=== PATIENT | female | born 1960 | race Caucasian/White ===

== ENCOUNTER → 2016-05-10 | Outpatient (CLI) | payer BC, MEDICARE ==
--- NOTE | 2016-05-11 08:22 | MM ---
Reason for exam: screening (asymptomatic). Last mammogram was performed 1 year and 3 months ago. History: Patient is postmenopausal. Physical Findings: A clinical breast exam by your physician is recommended on an annual basis and results should be correlated with mammographic findings. MG Screening Mammo w CAD Bilateral CC and MLO view(s) were taken. Prior study comparison: February 19, 2015, bilateral MG screening mammo w CAD. August 29, 2013, bilateral MG screening mammo w CAD. There are scattered fibroglandular densities. Asymmetric breast tissue in the right breast. No significant changes when compared with prior studies. ASSESSMENT: Benign, BI-RAD 2 RECOMMENDATION: Routine screening mammogram of both breasts in 1 year.
== END | disposition home or self-care (01) ==
LOC: RADMAMWWP 07:59
PROVIDERS: ATTEND Obstetrics & Gynecology
DX: Z12.31 Encounter for screening mammogram for malignant neoplasm of breast (principal)

== ENCOUNTER 2016-11-19 09:28 | Emergency (ER) | payer BC, MEDICARE ==
--- NOTE | 2016-11-19 10:55 | ED ---
General Adult HPI - General Chief complaint: Skin/Abscess/Foreign Body Stated complaint: abcess Time Seen by Provider: 11/19/16 09:41 Source: patient, RN notes reviewed Mode of arrival: ambulatory Limitations: no limitations - History of Present Illness Initial comments: Patient 56-year-old female who presents emergency room today with chief complaint of an abscess located on the right side of her buttocks. She does admit that it started approximate 4-5 days ago. She was seen by the family doctor who did do an incision and drainage and placed on antibiotics 2 days ago. She states has not gotten any better and has been getting worse. She states she's currently on Bactrim. She admits to pain locally to the areas states it is common larger and more tender and swollen. Denies any other complaints or symptoms at this time. Patient denies any recent fever, chills, shortness of breath, chest pain, back pain, abdominal pain, nausea or vomiting, numbness or tingling, dysuria or hematuria, constipation or diarrhea, headaches or visual changes, or any other complaints. - Related Data Home Medications Medication Instructions Recorded Confirmed Varenicline Tartrate [Chantix] 1 each PO DAILY 11/19/16 11/19/16 amLODIPine [Norvasc] 5 mg PO DAILY 11/19/16 11/19/16 Previous Rx's Medication Instructions Recorded Sulfamethox-Tmp 800-160Mg [Bactrim 1 tab PO Q12HR #28 tab 11/19/16 DS 800-160 mg] Allergies Allergy/AdvReac Type Severity Reaction Status Date / Time No Known Allergies Allergy Verified 11/19/16 09:33 Review of Systems ROS Statement: Those systems with pertinent positive or pertinent negative responses have been documented in the HPI. ROS Other: All systems not noted in ROS Statement are negative. Past Medical History Past Medical History: Hypertension History of Any Multi-Drug Resistant Organisms: None Reported Past Surgical History: Bariatric Surgery, Section, Joint Replacement, Orthopedic Surgery Additional Past Surgical History / Comment(s): mikey knee shoulder Past Psychological History: No Psychological Hx Reported Smoking Status: Current every day smoker Past Alcohol Use History: Occasional Past Drug Use History: None Reported General Exam - General Exam Comments Initial Comments: General: The patient is awake and alert, in no distress, and does not appear acutely ill. Eye: Pupils are equal, round and reactive to light, extra-ocular movements are intact. No nystagmus. There is normal conjunctiva bilaterally. No signs of icterus. Ears, nose, mouth and throat: There are moist mucous membranes and no oral lesions. Neck: The neck is supple, there is no tenderness or JVD. Cardiovascular: There is a regular rate and rhythm. No murmur, rub or gallop is appreciated. Respiratory: Lungs are clear to auscultation, respirations are non-labored, breath sounds are equal. No wheezes, stridor, rales, or rhonchi. Musculoskeletal: Normal ROM, no tenderness. Strength 5/5. Sensation intact. Pulses equal bilaterally 2+. Neurological: A&O x 3. CN II-XII intact, There are no obvious motor or sensory deficits. Coordination appears grossly intact. Speech is normal. Skin: Skin is warm and dry and no rashes or lesions are noted. Psychiatric: Cooperative, appropriate mood & affect, normal judgment. : [employer]PERVIS[employer]EN Bhatia present for exam. Patient does have a abscess formed on the right buttocks measuring approximately 5-6 cm across. Local redness or erythema. Ulcerated area centrally with no drainage. Limitations: no limitations Course Vital Signs 11/19/16 09:30 Temperature 98.7 F Pulse Rate 92 Respiratory 18 Rate Blood Pressure 130/75 O2 Sat by Pulse 99 Oximetry Procedures - Procedures Initial comment: Procedure: Incision and drainage The skin overlying the abscess was prepped with Betadine, and anesthetized with 1% lidocaine without epinephrine. A #11 scalpel was then used to incise the abscess. Some purulent material was then extracted from the lesion. Wound culture obtained. Gauze dressing placed on top, The patient tolerated the procedure well. Medical Decision Making - Medical Decision Making Case was seen by attending physician Dr. Craft. At this time patient's abscess was restrained here in the emergency room a moderate amount of material was removed. Patient states she would like to try to go home. She'll be continued on antibiotics she was only taking one tablet of Bactrim daily. Advised patient to increased Bactrim today to 2 tabs twice a day followed by 1 tab twice a day. Advised to follow-up Monday morning. Advised return if symptoms increase or worsen. Disposition Clinical Impression: Abscess Disposition: HOME SELF-CARE Condition: Good Instructions: Abscess (ED) Additional Instructions: Please use medication as discussed. Please follow-up with family doctor in the next 2 days of symptoms have not improved. Please return to emergency room if the symptoms increase or worsen or for any other concerns. Prescriptions: Sulfamethox-Tmp 800-160Mg [Bactrim DS 800-160 mg] 1 tab PO Q12HR #28 tab Referrals: Annamarie Isaac MD [Primary Care Provider] - 1-2 days Time of Disposition: 10:59
[2016-11-19 11:06] VITALS: BP 165/88; PULSE 87; RESP 16; TEMP 97.8
== END 2016-11-19 11:10 | disposition home or self-care (01) ==
LOC: EC 09:28
DX: L02.31 Cutaneous abscess of buttock (principal); I10 Essential (primary) hypertension; F17.200 Nicotine dependence, unspecified, uncomplicated; Z79.899 Other long term (current) drug therapy
CPT/HCPCS: 10060; 87070; 87077; 87186; 87205; 99283

== ENCOUNTER → 2017-12-13 | Outpatient (CLI) | payer BC, MEDICARE ==
--- NOTE | 2017-12-15 11:49 | MM ---
Reason for exam: screening (asymptomatic). Last mammogram was performed 1 year and 7 months ago. History: Patient is postmenopausal. Physical Findings: A clinical breast exam by your physician is recommended on an annual basis and results should be correlated with mammographic findings. MG 3D Screening Mammo W/Cad Bilateral CC and MLO view(s) were taken. Prior study comparison: May 10, 2016, bilateral MG screening mammo w CAD. February 19, 2015, bilateral MG screening mammo w CAD. Finding: There is a typically benign, stable 7 mm equal density (isodense), partially obscured round mass in the lower inner quadrant, middle position of the right breast. No significant new finding since May 10, 2016. ASSESSMENT: Benign, BI-RAD 2 RECOMMENDATION: Routine screening mammogram of both breasts in 1 year.
== END | disposition home or self-care (01) ==
LOC: RADMAMWWP 10:41
PROVIDERS: ATTEND Obstetrics & Gynecology
DX: Z12.31 Encounter for screening mammogram for malignant neoplasm of breast (principal)
CPT/HCPCS: 77063; 77067

== ENCOUNTER → 2019-06-24 | Outpatient (CLI) | payer BC, MEDICARE ==
--- NOTE | 2019-06-25 09:50 | BD ---
EXAMINATION TYPE: Axial Bone Density DATE OF EXAM: 06/24/2019 COMPARISON: NONE CLINICAL HISTORY: 58 YR OLD FEMALE....ICD-10 CODE: Z78.0 POST MENOPAUSAL Height: 67.3 Weight: 207 FRAX RISK QUESTIONS: Current Tobacco Use: YES RISK FACTORS HISTORY OF: Family History of Osteoporosis: YES, MOTHER WITH BACK FXS Postmenopausal woman: YES, AT 50 YRS OLD Hyperparathyroidism: NO Adrenal Insufficiency: NO MEDICATIONS: Prednisone or other steroids: YES, ONLY FOR ILLNESS THOUGH, NOT REGULARLY Additional Medications: BP MEDS, VIT D, AND MULTIVITAMINS, Additional History: HYPERTENSION EXAM MEASUREMENTS: Bone mineral densitometry was performed using the Stitch System. Bone mineral density as measured about the Lumbar spine is: ----- L1-L4(G/cm2): 1.362 T Score Values are as follows: ----- L1: 1.5 ----- L2: 1.4 ----- L3: 1.7 ----- L4: 1.3 ----- L1-L4: 1.5 Bone mineral density FIRST DEXA STUDY AT [facility] Bone mineral density about the R hip (g/cm2): 1.030 Bone mineral density about the L hip (g/cm2): 1.065 T Score values are as follows: -----R Neck: -0.4 -----L Neck: 0.3 -----R Total: 0.2 -----L Total: 0.5 Bone mineral density FIRST [facility] STUDY FRAX%s: THERE IS A 5.7% CHANCE FOR A MAJOR OSTEOPOROTIC FX AND A 0.3% FOR HIP......PROBABILITY FOR FX IN 10 YRS TIME IMPRESSION: Normal (Values between +1 and -1 indicate normal bone mass). Consider repeating this study in 5 year s or sooner if there is some new clinical indication. NOTE: T-SCORE=SD OF THE YOUNG ADULT MEAN.
--- NOTE | 2019-06-25 10:18 | MM ---
Reason for exam: screening (asymptomatic). Last mammogram was performed 1 year and 6 months ago. History: Patient is postmenopausal. Physical Findings: A clinical breast exam by your physician is recommended on an annual basis and results should be correlated with mammographic findings. MG 3D Screening Mammo W/Cad Bilateral CC and MLO view(s) were taken. Prior study comparison: December 13, 2017, bilateral MG 3d screening mammo w/cad. May 10, 2016, bilateral MG screening mammo w CAD. The breast tissue is heterogeneously dense. This may lower the sensitivity of mammography. There is chronic nodularity bilaterally. There is no discrete abnormality. ASSESSMENT: Benign, BI-RAD 2 RECOMMENDATION: Routine screening mammogram of both breasts in 1 year.
== END | disposition home or self-care (01) ==
LOC: RADMAMWWP 14:22
PROVIDERS: ATTEND Obstetrics & Gynecology
DX: Z12.31 Encounter for screening mammogram for malignant neoplasm of breast (principal); Z78.0 Asymptomatic menopausal state
CPT/HCPCS: 77063; 77067; 77080

== ENCOUNTER → 2019-09-11 | Outpatient (CLI) | payer BC, MEDICARE | END | disposition home or self-care (01) | LOC: LABWHC1 11:19 | PROVIDERS: ATTEND Surgery | DX: Z11.59 Encounter for screening for other viral diseases (principal) ==

== ENCOUNTER → 2019-09-13 | Day surgery (SDC) | payer BC, MEDICARE ==
[~2019-09-13] MED LIST: BUPIVACAINE (PF) 0.5% 30 ML VIAL SQ ONE; DEXAMETHASONE SOD PHOSPHATE 10 MG/ML 1 ML VIAL IV ONE; GLYCOPYRROLATE 0.2 MG/ML 2 ML VIAL ONE; HEPARIN SODIUM,PORCINE 5,000 UNIT/ML 1 ML VIAL SQ ONE; HYDROcodone/APAP 5-325MG 1 EACH TAB PO ONE; HYDROcodone/APAP 5-325MG 1 EACH TAB PO PRN; HYDROmorphone (PF) 1 MG/ML ONE; KETOROLAC 30 MG/ML 1 ML VIAL ONE; LACTATED RINGERS 1,000 ML IV ONE; LACTATED RINGERS 1,000 ML IV SCH; LIDOCAINE 1% INJ 10MG/ML (20 ML MDV) ONE; MIDAZOLAM 2 MG/2 ML VIAL ONE; NALOXONE 0.4 MG/ML 1 ML VIAL IV PRN; NEOSTIGMINE 1 MG/ML 10 ML VIAL ONE; ONDANSETRON 4 MG/2 ML VIAL IVP ONE; ONDANSETRON 4 MG/2 ML VIAL IVP PRN; PROPOFOL 10 MG/ML 20 ML VIAL IV ONE; ROCURONIUM BROMIDE 10 MG/ML 5 ML VIAL IV ONE; SCOPOLAMINE 1.5MG/72HR PATCH TRANSDERM ONE; SUCCINYLCHOLINE CHLORIDE 100 MG/5 ML SYR IV ONE; fentaNYL (PF) 50 MCG/ML 2 ML AMP ONE
[2019-09-13 16:49] VITALS: TEMP 97.5
[2019-09-13] MEDS: HYDROmorphone 0.5 MG/0.5 ML SYRINGE IVP PRN ×4 (16:50→17:17)
--- NOTE | 2019-09-13 16:51 | P.OP ---
Date of Procedure: 09/13/19 Procedure(s) Performed: PREOPERATIVE DIAGNOSIS: Chronic cholecystitis POSTOPERATIVE DIAGNOSIS: Same, intra-abdominal adhesions PROCEDURE: Laparoscopic cholecystectomy SURGEON: Yudy EBL: Minimal see anesthesia record ANESTHESIA: Gen. COMPLICATIONS: None OPERATIVE PROCEDURE: The patient was brought and placed on the operating room table in the supine position. The patient was placed under general anesthesia at that time. The abdomen was prepped and draped in the usual sterile fashion. A small incision was made in the left midabdomen. Using the optical trocar the peritoneum was entered. There were adhesions in the midline. I inflated we had no adhesions at our entrance site. I was able to swing my camera inferior to all of the adhesions and visualize an entrance site for our lateral 5 mm right upper quadrant trocar. That was placed under direct visualization. I then placed the camera there. Additional 5 mm trocar was placed at the umbilicus to the right. Another 5 mm trocar was placed medial to our right upper quadrant 5 mm trocar area and a 12 mm trocar was placed in the epigastrium. There is some adhesions between the omentum and the gallbladder which were lysed using electrocautery. The gallbladder was retracted superiorly and laterally. The peritoneum overlying the infundibulum was bluntly dissected. The patient's cystic duct was visualized. The junction between the cystic duct common and hepatic duct was identified. The cystic duct was then divided after placement of 3 12 mm clips on the patient's side and one on the specimen side. The cystic artery was identified and clipped as well. A small vessel was seen along the gallbladder fossa and clipped as well. The gallbladder was then removed from the liver bed using electrocautery. The gallbladder was then removed from the epigastric trocar site with an Endo Catch bag. The gallbladder fossa was irrigated with saline. There was no evidence of any bleeding or biliary drainage seen. The fascia at the 12 millimeter site was closed using a Issa- Erick 0 Vicryl stitch. The trochars were then removed. The skin at all 5 sites was closed using a 4-0 Monocryl stitch. Skin glue was utilized on the incision sites. At the end of this procedure the sponge and needle counts were correct. DISPOSITION: Stable to the recovery room
[2019-09-13 17:03] VITALS: RESP 16
[2019-09-13 18:06] VITALS: BP 128/76; PULSE 60
== END ==
LOC: OR 12:48
PROVIDERS: ATTEND Surgery
DX: K80.10 Calculus of gallbladder with chronic cholecystitis without obstruction (principal); K66.0 Peritoneal adhesions (postprocedural) (postinfection); K22.70 Barrett's esophagus without dysplasia; I10 Essential (primary) hypertension; F17.210 Nicotine dependence, cigarettes, uncomplicated; Z87.2 Personal history of diseases of the skin and subcutaneous tissue; Z98.84 Bariatric surgery status; Z98.890 Other specified postprocedural states; Z79.899 Other long term (current) drug therapy; Z96.659 Presence of unspecified artificial knee joint
CPT/HCPCS: 47562; 88304; J2250; J1644; J1100; J2710; J2405; J2001; J3010; J1885; J1170 ×2; J0330; J2704

== ENCOUNTER → 2020-08-17 | Outpatient (CLI) | payer BC, MEDICARE | END | disposition home or self-care (01) | LOC: LABWHC1 13:16 | PROVIDERS: ATTEND Orthopaedic Surgery | DX: Z01.812 Encounter for preprocedural laboratory examination (principal); Z20.822 Contact with and (suspected) exposure to COVID-19; Z47.1 Aftercare following joint replacement surgery | CPT/HCPCS: 85652; 86140; 36415; U0003; U0005 ==

== ENCOUNTER 2021-01-16 11:37 | Emergency (ER) | payer BC, MEDICARE ==
--- NOTE | 2021-01-16 12:54 | ED ---
General Adult HPI - General Source: patient, RN notes reviewed Mode of arrival: ambulatory <Zion Boston - Last Filed: 01/16/21 12:50> <Sourav Decker - Last Filed: 01/16/21 17:56> - General Stated complaint: kidney pain - History of Present Illness Initial comments: This is a 60-year-old female presents emergency Department chief complaint of right flank pain. Patient states pain started a few days ago was seen at PCPs office was given Macrobid, Flomax. Patient states she has no history kidney stones was told she had a kidney infection or kidney stone. Patient states pain is severe 9/10 pain currently. Patient states that she's nauseated no vomiting no diarrhea no constipation no chest pain (Zion Boston) I evaluated the patient after she was placed in a room. Workup was started by mid-level provider in the waiting room. Patient is a 60-year-old female with past medical history remarkable for prior bariatric surgery, orthopedic surgery, recently diagnosed UTI currently on antibiotics he presents emergency Department complaining of right-sided kidney pain. Patient states that her kidney is hurting her, and she suspects it may be a stone or infection. She has no history of kidney stones. She doesn't have any persistent history of bladder infections or UTIs. States she felt nauseous earlier but denies any vomiting. She states she had one or 2 episodes of diarrhea. She denies any rectal bleeding, hematemesis. Denies any chest pain, shortness breath, abdominal pain. States that the pain is worse with movement and points to her right lower back. She denies any fevers, chills, sick contacts. She has no other acute complaint s at this time. She states that her dysuria is improving and she has any. She denies any vaginal discharge or bleeding. Patient presents over concern for possible renal stone. Describes the pain as a sharp aching sensation that does not radiate to her upper back or towards her groin or over the flank. It is located in her right lower back the paralumbar region into her gluteus muscle. (Sourav Decker) - Related Data Home Medications Medication Instructions Recorded Confirmed amLODIPine [Norvasc] 5 mg PO DAILY 11/19/16 11/19/16 Previous Rx's Medication Instructions Recorded HYDROcodone/APAP 5-325MG [[place] 1 tab PO Q6HR PRN 3 Days #12 tab 01/16/21 5-325] Lidocaine 5% Patch [Lidoderm 5% 1 patch TOPICAL DAILY PRN 7 Days 01/16/21 Patch] #7 patch Methocarbamol [Robaxin-750] 750 mg PO TID PRN 7 Days #21 tablet 01/16/21 Tamsulosin [Flomax] 0.4 mg PO DAILY 7 Days #7 cap 01/16/21 Allergies Allergy/AdvReac Type Severity Reaction Status Date / Time sulfamethoxazole Allergy Itching Verified 01/16/21 12:55 [From Bactrim] trimethoprim [From Bactrim] Allergy Itching Verified 01/16/21 12:55 Review of Systems ROS Other: All systems not noted in ROS Statement are negative. <Zion Boston - Last Filed: 01/16/21 12:50> ROS Other: All systems not noted in ROS Statement are negative. <Sourav Decker - Last Filed: 01/16/21 17:56> ROS Statement: Those systems with pertinent positive or pertinent negative responses have been documented in the HPI. Review of Systems: CONST: Denies fever EYES: Denies blurry vision ENT: Denies nasal congestion C/V: Denies Chest pain RESP: Denies shortness of breath GI: Denies abdominal pain : Denies dysuria SKIN: Denies rash. MSK: Endorses back pain NEURO: Denies headache (Sourav Decker) Past Medical History Past Medical History: Hypertension History of Any Multi-Drug Resistant Organisms: None Reported Past Surgical History: Bariatric Surgery, Section, Joint Replacement, Orthopedic Surgery Additional Past Surgical History / Comment(s): mikey knee shoulder Past Psychological History: No Psychological Hx Reported Past Alcohol Use History: Occasional Past Drug Use History: None Reported <Zion Boston - Last Filed: 01/16/21 12:50> General Exam <Sourav Decker - Last Filed: 01/16/21 17:56> - General Exam Comments Initial Comments: General: Appears in mild distress secondary to pain HEAD: Normal with no signs of head trauma. EYES: PERRLA, EOMI, conjunctiva normal, no discharge. ENT: Hearing grossly intact, normal oropharynx. RESPIRATORY: Clear breath sounds bilaterally. No wheezes, rales, or rhonchi. C/V: Regular rate and rhythm. S1 and S2 auscultated, no edema, peripheral pulses 2+ and intact throughout ABD: Abdomen soft, nontender, nondistended. There is no abdominal tenderness. There is no guarding. There are no peritoneal signs. No CVA tenderness to percussion. No rebound tenderness. EXT: Normal range of motion of all 4 shortness without any obvious deformity. Patient has right paralumbar spine muscle tenderness to palpation that radiates into her right gluteus muscle. The pain appears to be muscle skeletal in nature. SKIN: No rashes or lesions observed on exposed skin. NEURO: Alert and oriented 4. (Sourav Decker) Course Vital Signs 01/16/21 12:52 Temperature 97.9 F Pulse Rate 59 L Respiratory 20 Rate Blood Pressure 184/100 O2 Sat by Pulse 99 Oximetry Medical Decision Making - Lab Data Result diagrams: 01/16/21 15:58 01/16/21 15:58 <Sourav Decker - Last Filed: 01/16/21 17:56> - Medical Decision Making Based on the patient's presentation and physical exam, the patient is having right paralumbar spine back pain that she is convinced may be a kidney stone. She was recently diagnosed with UTI and is currently on nitrofurantoin for an tibiotics. She currently denies any current nausea. She does have wench episodes of nonbloody diarrhea over the last few days. She is tolerant by mouth intake otherwise has no other acute complaints. This patient may have a renal stone, abdominal labs were ordered by the mid-level provider as well as a CT abdomen and pelvis. Urinalysis was also obtained. I evaluated the patient when she was placed in a room. At this point, urinalysis as well as CT were completed. Urinalysis was relatively unremarkable revealed only trace leukocyte esterase but she is currently already on nitrofurantoin for UTI and has some days left. There is no blood present. Patient's CT abdomen and pelvis did not reveal any signs of kidney stones. It did show some mild possible enteritis in the left small bowel. She has no pain over this area. Otherwise no acute problems. I discussed the imaging and the urinalysis with the patient. We will obtain a ultrasound of the bladder and kidneys throughout possibly of hydronephrosis encases abdominal CT missed nephrolithiasis. We will also complete the abdom inal laboratory studies and provide her with some medical treatment including 1 L fluid bolus as well as IV morphine and Toradol and a lidocaine patch. I discussed with her that I believe it is still likely to be muscular skeletal pain, however we will rule out any other causes at this time. She was in agreement this plan. Patient's laboratory studies are relatively unremarkable. Patient's calcium is slightly elevated 10.6. Otherwise electrolytes and CBC are within normal limits. Patient's ultrasound revealed a non-obstructing 5 mm right renal calculus without any signs of hydronephrosis. On reevaluation and patient's pain is somewhat improved. I discussed the results of her imaging lavatory studies with her. As the patient is tolerating by mouth intake at this time, and his pain under control I do believe it is safe for her to be discharged home with follow-up with urology. She was in agreement this plan. I recommended that she continue to complete her antibiotics and she was in agreement with the plan. I believe her pain is likely secondary to muscular skeletal pain. She can use muscle relaxers, ibuprofen, Tylenol for pain management as well as lidocaine patches. She was in agreement this plan. I will give her a three-day prescription of [place] for pain as well. I will provide the patient with a prescription for Robaxin, lidocaine patch, [place] 5 12 tabs. I instructed the patient to follow up with their PCP in the next 3 days. I provided follow-up information with Dr. Neville of urology. I explained that the patient should return to the emergency department if they experience any worsening symptoms. Strict return precautions were discussed with the patient. The patient expressed understanding of these instructions. I answered all questions that the patient had. The patient was discharged home in fair condition with their prescriptions and follow up information. (Sourav Decker) - Lab Data Lab Results 01/16/21 01/16/21 01/16/21 Range/Units 12:57 15:58 15:58 WBC 8.6 (3.8-10.6) k/uL RBC 4.46 (3.80-5.40) m/uL Hgb 14.8 (11.4-16.0) gm/dL Hct 44.1 (34.0-46.0) % MCV 98.9 (80.0-100.0) fL MCH 33.3 (25.0-35.0) pg MCHC 33.6 (31.0-37.0) g/dL RDW 13.6 (11.5-15.5) % Plt Count 178 (150-450) k/uL MPV 7.6 Neutrophils % 69 % Lymphocytes % 21 % Monocytes % 6 % Eosinophils % 3 % Basophils % 0 % Neutrophils # 5.9 (1.3-7.7) k/uL Lymphocytes # 1.8 (1.0-4.8) k/uL Monocytes # 0.5 (0-1.0) k/uL Eosinophils # 0.2 (0-0.7) k/uL Basophils # 0.0 (0-0.2) k/uL Sodium 136 L (137-145) mmol/L Potassium 4.6 (3.5-5.1) mmol/L Chloride 105 (98-107) mmol/L Carbon Dioxide 24 (22-30) mmol/L Anion Gap 7 mmol/L BUN 15 (7-17) mg/dL Creatinine 0.87 (0.52-1.04) mg/dL Est GFR (CKD-EPI)AfAm 84 (>60 ml/min/1.73 sqM) Est GFR (CKD-EPI)NonAf 73 (>60 ml/min/1.73 sqM) Glucose 92 (74-99) mg/dL Calcium 10.6 H (8.4-10.2) mg/dL Total Bilirubin 1.1 (0.2-1.3) mg/dL AST 26 (14-36) U/L ALT 20 (4-34) U/L Alkaline Phosphatase 98 (38-126) U/L Total Protein 7.0 (6.3-8.2) g/dL Albumin 4.3 (3.5-5.0) g/dL Amylase 52 (30-110) U/L Lipase 66 (23-300) U/L Urine Color Light Yellow Urine Appearance Clear (Clear) Urine pH 5.0 (5.0-8.0) Ur Specific Varney 1.003 (1.001-1.035) Urine Protein Negative (Negative) Urine Glucose (UA) Negative (Negative) Urine Ketones Negative (Negative) Urine Blood Negative (Negative) Urine Nitrite Negative (Negative) Urine Bilirubin Negative (Negative) Urine Urobilinogen <2.0 (<2.0) mg/dL Ur Leukocyte Esterase Trace H (Negative) Urine RBC <1 (0-5) /hpf Urine WBC 1 (0-5) /hpf Ur Squamous Epith Cells 1 (0-4) /hpf Disposition <Zion Boston - Last Filed: 01/16/21 12:50> Is patient prescribed a controlled substance at d/c from ED?: Yes If prescribed controlled substance>3 days was MAPS reviewed?: Prescribed <3 Days <Sourav Decker - Last Filed: 01/16/21 17:56> Clinical Impression: Back pain, Musculoskeletal pain, Nephrolithiasis Disposition: HOME SELF-CARE Condition: Fair Instructions (If sedation given, give patient instructions): Kidney Stones (ED) Prescriptions: Tamsulosin [Flomax] 0.4 mg PO DAILY 7 Days #7 cap Lidocaine 5% Patch [Lidoderm 5% Patch] 1 patch TOPICAL DAILY PRN 7 Days #7 patch PRN Reason: Pain HYDROcodone/APAP 5-325MG [[place] 5-325] 1 tab PO Q6HR PRN 3 Days #12 tab PRN Reason: Pain Methocarbamol [Robaxin-750] 750 mg PO TID PRN 7 Days #21 tablet PRN Reason: Pain Referrals: Annamarie Isaac MD [Primary Care Provider] - 1-2 days Aron Neville MD [STAFF PHYSICIAN] - 1-2 days
[2021-01-16 12:55] VITALS: BP 184/100; PULSE 59; RESP 20; TEMP 97.9
[2021-01-16 13:37] LABS: Appearance,Urine Clear (Clear); Bilirubin,Urine Negative (Negative); Blood,Urine Negative (Negative); Color,Urine Light Yellow; Glucose,Urine (UA) Negative (Negative); Ketones,Urine Negative (Negative); Leukocyte Esterase,Urine Trace (Negative); Nitrite,Urine Negative (Negative); Protein,Urine Negative (Negative); RBC,Urine <1 /hpf (0-5); Specific Gravity,Urine 1.003 (1.001-1.035); Squamous Epithelial Cell,Urine 1 /hpf (0-4); Urobilinogen,Urine <2.0 mg/dL (<2.0); WBC,Urine 1 /hpf (0-5)
--- NOTE | 2021-01-16 14:09 | CT ---
EXAMINATION TYPE: CT abdomen pelvis wo con DATE OF EXAM: 01/16/2021 COMPARISON: CT 01/06/2016 HISTORY: right flank pain, difficulty urinating CT DLP: 1080.4 mGycm Automated exposure control for dose reduction was used. TECHNIQUE: Helical acquisition of images from the lung bases through the pelvis. FINDINGS: Lack of intravenous contrast could compromise sensitivity of the exam. LUNG BASES: Patient is post cholecystectomy, liver shows no mass. AORTA: No significant abnormality is appreciated. LIVER/GB: No significant abnormality is appreciated. PANCREAS: No significant abnormality is seen. SPLEEN: No significant abnormality is seen. ADRENALS: No significant abnormality is seen. KIDNEYS: No significant abnormality is seen. Circumaortic left renal vein is noted REPRODUCTIVE ORGANS: No significant abnormality is seen. URINARY BLADDER: No significant abnormality is seen. BOWEL: There is some scattered diverticular changes noted in the sigmoid colon, no evident bowel obs truction. Within the small bowel there are some fluid-filled mildly distended loops in the left upper quadrant, some questionable wall thickening.. FREE AIR: No Free Air is visible. ASCITES: None visible. PELVIC ADENOPATHY: None visualized. RETROPERITONEAL ADENOPATHY: No Retroperitoneal Adenopathy visible. OSSEOUS STRUCTURES: There are degenerative disc changes, facet arthropathy noted in the lower lumbar spine. Possible foraminal encroachment noted bilaterally due to subfrontal extension endplates L5-S1, L4-5, L3-4, associated loss of disc height at L4-5 and L5-S1 IMPRESSION: CORRELATE FOR POSSIBLE ENTERITIS. Additional findings above.
[2021-01-16] MEDS ORDERED: MORPHINE SULFATE 4 MG/ML SYRINGE IVP STA (15:43)
[2021-01-16] MEDS ORDERED: SODIUM CHLORIDE 0.9% 1,000 ML IV ONE (15:43)
[2021-01-16] MEDS ORDERED: KETOROLAC 15 MG/ML 1 ML VIAL IVP STA (15:43)
[2021-01-16 16:11] LABS: Basophils % (A) 0 %; Eosinophils # (A) 0.2 k/uL (0-0.7); Eosinophils % (A) 3 %; HCT 44.1 % (34.0-46.0); HGB 14.8 gm/dL (11.4-16.0); Lymphocytes # (A) 1.8 k/uL (1.0-4.8); Lymphocytes % (A) 21 %; MCH 33.3 pg (25.0-35.0); MCHC 33.6 g/dL (31.0-37.0); MCV 98.9 fL (80.0-100.0); Mean Platelet Volume 7.6; Monocytes # (A) 0.5 k/uL (0-1.0); Monocytes % (A) 6 %; Neutrophils # (A) 5.9 k/uL (1.3-7.7); Neutrophils % (A) 69 %; Platelet Count 178 k/uL (150-450); RBC 4.46 m/uL (3.80-5.40); RDW 13.6 % (11.5-15.5); WBC 8.6 k/uL (3.8-10.6)
[2021-01-16 16:29] LABS: Albumin 4.3 g/dL (3.5-5.0); Calcium 10.6 mg/dL (8.4-10.2); Potassium 4.6 mmol/L (3.5-5.1); Total Bilirubin 1.1 mg/dL (0.2-1.3)
[2021-01-16] MEDS ORDERED: LIDOCAINE 5% PATCH TOPICAL STA (16:41)
--- NOTE | 2021-01-16 17:18 | US ---
EXAMINATION TYPE: US renals and bladder DATE OF EXAM: 01/16/2021 COMPARISON: CT,US CLINICAL HISTORY: assess for hydronephrosis, right flank pain. Right flank pain. EXAM MEASUREMENTS: Right Kidney: 10.6 x 4.8 x 4.9 cm Left Kidney: 11.4 x 4.6 x 5.5 cm Limited due to patient body habitus. Right Kidney: Pyramids appear prominent, possible dilated collecting system. Hyperechoic focus seen: 0.4 x 0.5 x 0.2 cm. Left Kidney: Lobulated contour. Pyramids appear prominent, possible dilated collecting system. Bladder: Appears anechoic. Bilateral Jets seen: Right jet seen during exam. Impression There is right-sided ureteral jet demonstrated. No ureteral jet seen on the left side. No definite le ft side hydronephrosis. Nonobstructing 5 mm right renal calculus.
== END 2021-01-16 18:06 | disposition home or self-care (01) ==
LOC: EC 11:37
DX: N20.0 Calculus of kidney (principal); M79.18 Myalgia, other site; M54.50 Low back pain, unspecified; R10.31 Right lower quadrant pain; I10 Essential (primary) hypertension; Z88.1 Allergy status to other antibiotic agents; Z88.2 Allergy status to sulfonamides; Z79.899 Other long term (current) drug therapy
CPT/HCPCS: 99284 ×2; 96374 ×2; 96375 ×2; 96361; 36415; 80053; 82150; 83690; 85025; 81001; 76770; 74176; J2270; J1885

== ENCOUNTER → 2021-02-26 | Outpatient (CLI) | payer BC, MEDICARE ==
--- NOTE | 2021-03-02 10:45 | MM ---
Reason for exam: screening (asymptomatic). Last mammogram was performed 1 year and 8 months ago. History: Patient is postmenopausal. Took hormonal contraceptives for 4 years. Physical Findings: A clinical breast exam by your physician is recommended on an annual basis and results should be correlated with mammographic findings. MG 3D Screening Mammo W/Cad Bilateral CC and MLO view(s) were taken. Prior study comparison: June 24, 2019, bilateral MG 3d screening mammo w/cad. December 13, 2017, bilateral MG 3d screening mammo w/cad. There are scattered fibroglandular densities. There is chronic nodularity in the right breast. Possible subtle distortion, central left CC view. May be inferiorly on MLO. ASSESSMENT: Incomplete: need additional imaging evaluation, BI-RAD 0 RECOMMENDATION: Special view mammogram of the left breast. (3D) If lesion persists on supplemental views, image directed ultrasound is recommended. [facility] will attempt to contact patient to return for supplemental views and ultrasound if indicated.
== END | disposition home or self-care (01) ==
LOC: RADMAMWWP 14:26
PROVIDERS: ATTEND Family Medicine
DX: Z12.31 Encounter for screening mammogram for malignant neoplasm of breast (principal)
CPT/HCPCS: 77063; 77067

== ENCOUNTER → 2021-03-10 | Outpatient (CLI) | payer BC, MEDICARE ==
--- NOTE | 2021-03-10 09:40 | MM ---
Reason for exam: additional evaluation requested from abnormal screening. Last mammogram was performed less than 1 month ago. History: Patient is postmenopausal. Took hormonal contraceptives for 4 years. Physical Findings: Nurse did not find any significant physical abnormalities on exam. MG 3D Work Up W/Cad LT CC and MLO view(s) were taken of the left breast. Prior study comparison: February 26, 2021, bilateral MG 3d screening mammo w/cad. June 24, 2019, bilateral MG 3d screening mammo w/cad. The breast tissue is heterogeneously dense. This may lower the sensitivity of mammography. Focal asymmetry, disperses with undelying nodularity. These results were verbally communicated with the patient and result sheet given to the patient on 03/10/21. ASSESSMENT: Incomplete: need additional imaging evaluation, BI-RAD 0 RECOMMENDATION: Ultrasound of the left breast.
--- NOTE | 2021-03-10 09:42 | USB ---
Reason for exam: additional evaluation requested from abnormal screening. History: Patient is postmenopausal. Took hormonal contraceptives for 4 years. US Breast Limited LT Technologist: Erica Weber Left limited breast ultrasound including focal area of concern, retroareolar and axilla demonstrates no cystic or solid lesion seen. Minimally prominent axillary lymph node cortex. Short term follow up recommended. Scanned 5-8 o'clock. These results were verbally communicated with the patient and result sheet given to the patient on 03/10/21. ASSESSMENT: Probably benign, BI-RAD 3 RECOMMENDATION: Follow-up diagnostic mammogram of both breasts in 6 months. Ultrasound of the left breast in 6 months. (axilla)
== END | disposition home or self-care (01) ==
LOC: RADMAMWWP 07:54
PROVIDERS: ATTEND Family Medicine
DX: R92.8 Other abnormal and inconclusive findings on diagnostic imaging of breast (principal)
CPT/HCPCS: 77061; 77065

== ENCOUNTER → 2021-08-09 | Outpatient (CLI) | payer BC, MEDICARE ==
--- NOTE | 2021-08-10 08:56 | MM ---
Reason for exam: additional evaluation requested from prior study. Last mammogram was performed 5 months ago. History: Patient is postmenopausal. Family history of breast cancer in sister at age 66. Took hormonal contraceptives for 4 years. Physical Findings: A clinical breast exam by your physician is recommended on an annual basis and results should be correlated with mammographic findings. MG 3D Diag Mammo W/Cad CATALINO Bilateral CC and MLO view(s) were taken. Prior study comparison: March 10, 2021, left breast MG 3d work up w/cad LT. February 26, 2021, bilateral MG 3d screening mammo w/cad. The breast tissue is heterogeneously dense. This may lower the sensitivity of mammography. There is chronic nodularity bilaterally. There is no dominant lesion. There is no discrete abnormality including area of concern. No significant new findings when compared with previous films. Results were given to the patient verbally at the time of the exam. ASSESSMENT: Incomplete: need additional imaging evaluation, BI-RAD 0 RECOMMENDATION: Ultrasound of the left breast.
--- NOTE | 2021-08-10 08:58 | USB ---
Reason for exam: additional evaluation requested from abnormal screening. History: Patient is postmenopausal. Family history of breast cancer in sister at age 66. Took hormonal contraceptives for 4 years. Physical Findings: A clinical breast exam by your physician is recommended on an annual basis and results should be correlated with mammographic findings. US Breast Axilla LT Left breast axilla ultrasound demonstrates no cystic or solid lesion seen. Results were given to the patient verbally at the time of the exam. ASSESSMENT: Negative, BI-RAD 1 RECOMMENDATION: Return to routine screening mammogram schedule for both breasts.
== END | disposition home or self-care (01) ==
LOC: RADMAMWWP 13:27
PROVIDERS: ATTEND Family Medicine
DX: R92.8 Other abnormal and inconclusive findings on diagnostic imaging of breast (principal)
CPT/HCPCS: 77066; 76642; G0279; 77062

== ENCOUNTER → 2022-03-04 | Outpatient (CLI) | payer MEDICARE, BC ==
--- NOTE | 2022-03-04 10:45 | BD ---
EXAMINATION TYPE: Axial Bone Density DATE OF EXAM: 03/04/2022 COMPARISON: 06-24-19 CLINICAL HISTORY: 61 years year old Female. ICD-10 CODE: N95.1 MENOPAUSAL STATE Height: 68IN Weight: 221LB FRAX RISK QUESTIONS: Secondary Osteoporosis: Current Tobacco Use: YES RISK FACTORS HISTORY OF: Active: YES Postmenopausal woman: YES Lost more than 2 inches in height since high school: YES MEDICATIONS: Additional Medications: MULTIVITAMIN Additional History: EXAM MEASUREMENTS: Bone mineral densitometry was performed using the [employer] System. Bone mineral density as measured about the Lumbar spine is: ----- L1-L4(G/cm2): 1.290 T Score Values are as follows: ----- L1: 0.5 ----- L2: 0.7 ----- L3: 1.4 ----- L4: 0.8 ----- L1-L4: 0.9 Bone mineral density has: Decreased -4.4% since study of: 06-24-19 Bone mineral density about the R hip (g/cm2): 1.012 Bone mineral density about the L hip (g/cm2): 1.008 T Score values are as follows: -----R Neck: -0.7 -----L Neck: -0.3 -----R Total: 0.0 -----L Total: 0.0 Bone mineral density has: Decreased -3.5% since study of: 06-24-19 FRAX%s: The graph provided illustrates a 3.1% chance for a major osteoporotic fx and a 0.5% chance fo r the hips probability for fx in 10 years time. IMPRESSION: Normal (Values between +1 and -1 indicate normal bone mass). Consider repeating this study in 5 year s or sooner if there is some new clinical indication. NOTE: T-SCORE=SD OF THE YOUNG ADULT MEAN.
--- NOTE | 2022-03-07 09:00 | MM ---
Reason for Exam: Screening (asymptomatic). Last screening mammogram was performed 6 month(s) ago. Patient History: Menarche at age 14. First Full-Term at age 25. Postmenopausal. Patient used Hormonal Contraceptives for 4 years. Sister had breast cancer, age 66. Risk Values: Stephy 5 year model risk: 2.7%. NCI Lifetime model risk: 12.4%. Prior Study Comparison: 02/26/2021 Bilateral Screening Mammogram, [facility]. 03/10/2021 Left Diagnostic Mammogram, [facility]. 08/09/2021 Bilateral Diagnostic Mammogram, [facility]. Tissue Density: The breast tissue is heterogeneously dense. This may lower the sensitivity of mammography. Findings: Analyzed By CAD. Stable small well-circumscribed round and oval masses in the bilateral breasts. There is no suspicious new group of microcalcifications or enlarging masses in either breast. Overall Assessment: Benign, BI-RAD 2 Management: Screening Mammogram of both breasts in 1 year. A clinical breast exam by your physician is recommended on an annual basis and results should be correlated with mammographic findings. Electronically signed and approved by: Alfred Pavon M.D.
== END | disposition home or self-care (01) ==
LOC: RADMAMWWP 09:42
PROVIDERS: ATTEND Family Medicine
DX: Z12.31 Encounter for screening mammogram for malignant neoplasm of breast (principal); N95.1 Menopausal and female climacteric states; Z80.3 Family history of malignant neoplasm of breast
CPT/HCPCS: 77063; 77067; 77080

== ENCOUNTER 2023-11-01 12:47 | Emergency (ER) | payer BC, MEDICARE ==
[2023-11-01 13:02] VITALS: RESP 18
--- NOTE | 2023-11-01 13:54 | ED ---
Lower Extremity Injury HPI - General Chief Complaint: Extremity Injury, Lower Stated Complaint: L leg pain/swelling Time Seen by Provider: 11/01/23 13:01 Source: patient, RN notes reviewed Mode of arrival: ambulatory Limitations: no limitations - History of Present Illness Initial Comments: This is a 63-year-old female presents emergency department chief complaint of a injury to the left lower extremity. Patient states that she was riding a tractor last week when she had her left anterior zee into a tractor bucket. She denies falling or hitting her head at the time this injury. There has been a large hematoma that is developed over the past few days and surrounding ecchymosis. However patient is concerned that there is an area of redness and warmth. She denies paresthesias or loss of mobility since this injury. She has attempted Tylenol Motrin at home with rest, ice, elevation that is aid in relief. Patient is concerned for possible blood clot due to the swelling and pain in the lower extremity. - Related Data Home Medications Medication Instructions Recorded Confirmed Multivitamins, Thera [Multivitamin 1 tab PO DAILY 01/16/21 01/16/21 (formulary)] Nitrofurantoin Monohyd/M-Cryst 100 mg PO Q12H 01/16/21 01/16/21 [Macrobid] Tamsulosin [Flomax] 0.4 mg PO HS 01/16/21 01/16/21 Previous Rx's Medication Instructions Recorded HYDROcodone/APAP 5-325MG [Dennison 1 tab PO Q6HR PRN 3 Days #12 tab 01/16/21 5-325] Lidocaine 5% Patch [Lidoderm 5% 1 patch TOPICAL DAILY PRN 7 Days 01/16/21 Patch] #7 patch Tamsulosin [Flomax] 0.4 mg PO DAILY 7 Days #7 cap 01/16/21 methocarbamoL [Robaxin-750] 750 mg PO TID PRN 7 Days #21 tablet 01/16/21 Cephalexin [Keflex] 500 mg PO Q6HR #40 cap 11/01/23 Allergies Allergy/AdvReac Type Severity Reaction Status Date / Time sulfamethoxazole Allergy Itching Verified 03/10/21 08:42 [From Bactrim] trimethoprim [From Bactrim] Allergy Itching Verified 03/10/21 08:42 Review of Systems ROS Statement: Those systems with pertinent positive or pertinent negative responses have been documented in the HPI. ROS Other: All systems not noted in ROS Statement are negative. Past Medical History Past Medical History: Hypertension History of Any Multi-Drug Resistant Organisms: None Reported Past Surgical History: Bariatric Surgery, Section, Joint Replacement, Orthopedic Surgery Additional Past Surgical History / Comment(s): mikey knee shoulder Past Psychological History: No Psychological Hx Reported Smoking Status: Current some day smoker Past Alcohol Use History: Occasional Past Drug Use History: None Reported General Exam Limitations: no limitations General appearance: alert, in no apparent distress Head exam: Present: atraumatic, normocephalic, normal inspection Eye exam: Present: normal appearance, PERRL, EOMI. Absent: scleral icterus, conjunctival injection, periorbital swelling ENT exam: Present: normal exam, mucous membranes moist Neck exam: Present: normal inspection. Absent: tenderness, meningismus, lymphadenopathy Respiratory exam: Present: normal lung sounds bilaterally. Absent: respiratory distress, wheezes, rales, rhonchi, stridor Cardiovascular Exam: Present: regular rate, normal rhythm, normal heart sounds. Absent: systolic murmur, diastolic murmur, rubs, gallop, clicks GI/Abdominal exam: Present: soft, normal bowel sounds. Absent: distended, tenderness, guarding, rebound, rigid Left Lower Leg exam: Present: tenderness, swelling, ecchymosis, erythema. Absent: no rmal inspection, palpable cord, Homans' sign Neurovascular tendon exam: Present: no vascular compromise. Absent: pulse deficit, abnormal cap refill Gait: observed and normal Back exam: Present: normal inspection Neurological exam: Present: alert, oriented X3, CN II-XII intact Psychiatric exam: Present: normal affect, normal mood Skin exam: Present: warm, dry, intact, normal color. Absent: rash Course Vital Signs 11/01/23 11/01/23 12:59 14:41 Temperature 98.3 F 98.2 F Pulse Rate 69 51 L Respiratory 18 18 Rate Blood Pressure 137/89 138/81 O2 Sat by Pulse 99 98 Oximetry Medical Decision Making - Medical Decision Making Was pt. sent in by a medical professional or institution (, PA, DRAFTING LAYOUT MAN, urgent care, hospital, or [facility]...) When possible be specific @ -No Did you speak to anyone other than the patient for history (EMS, parent, family, police, friend...)? What history was obtained from this source @ -No Did you review nursing and triage notes (agree or disagree)? Why? @ -I reviewed and agree with nursing and triage notes Were old charts reviewed (outside hosp., previous admission, EMS record, old EKG, old radiological studies, urgent care reports/EKG's, [facility] records)? Report findings @ -No old charts were reviewed Differential Diagnosis (chest pain, altered mental status, abdominal pain women, abdominal pain men, vaginal bleeding, weakness, fever, dyspnea, syncope, headache, dizziness, GI bleed, back pain, seizure, CVA, palpatations, mental health, musculoskeletal)? @ -Cellulitis, ecchymosis, hematoma, DVT, superficial thrombophlebitis, edema, this list is not all inclusive. EKG interpreted by me (3pts min.). @ -None X-rays interpreted by me (1pt min.). @ -None done CT interpreted by me (1pt min.). @ -None done U/S interpreted by me (1pt. min.). @ -Next ultrasound of the left lower extremity negative for DVT. There is superficial swelling of the anterior zee compatible with patient's injury. What testing was considered but not performed or refused? (CT, X-rays, U/S, labs)? Why? @ -The left lower extremity considered but deferred. On examination there is minimal clinical concern that there is an osseous abnormality of the tibia or fibula. Additionally, patient is declining x-ray at this time and is not concerned for a bony abnormality. What meds were considered but not given or refused? Why? @ -None Did you discuss the management of the patient with other professionals (professionals i.e. , PA, DRAFTING LAYOUT MAN, lab, RT, psych nurse, manager social media, manager coding, teacher, jail officer, shelter case manager)? Give summary @ -No Was smoking cessation discussed for >3mins.? @ -No Was critical care preformed (if so, how long)? @ -No Were there social determinants of health that impacted care today? How? (Homelessness, low income, unemployed, alcoholism, drug addiction, transportation, low edu. Level, literacy, decrease access to med. care, prison, rehab)? @ -No Was there de-escalation of care discussed even if they declined (Discuss DNR or withdrawal of care, Hospice)? DNR status @ -No What co-morbidities impacted this encounter? (DM, HTN, Smoking, COPD, CAD, Cancer, CVA, ARF, Chemo, Hep., AIDS, mental health diagnosis, sleep apnea, morbid obesity)? @ -None Was patient admitted / discharged? Hospital course, mention meds given and route, prescriptions, significant lab abnormalities, going to OR and other pertinent info. @ -discharge. 63-year-old female with an injury to the left lower extremity. On examination patient is noted to have ecchymosis that appears to be healing, additionally there is a hematoma and area of erythema over the anterior zee measuring approximately 3 cm x 2 cm and a of scabbing in the middle. There is no pulse deficit and gait is observed with no changes. Patient is neurovascularly intact. Ultrasound negative for DVT. Due to presentation patient will be treated with the dose of antibiotics here and sent a prescription for oral antibiotics for cellulitis. Blood work not obtained due to minimal concern for systemic infection, patient agrees with this. Complete full course of antibiotics recommend she follows with her primary care provider next week for further evaluation. All questions answered at bedside and strict return parameters discussed with the patient she is verbalized understanding. Case discussed with Dr. Miller. Undiagnosed new problem with uncertain prognosis? @ -No Drug Therapy requiring intensive monitoring for toxicity (Heparin, Nitro, Insulin, Cardizem)? @ -No Were any procedures done? @ -No Diagnosis/symptom? @ -ecchymosis, cellulitis Acute, or Chronic, or Acute on Chronic? @ -acute Uncomplicated (without systemic symptoms) or Complicated (systemic symptoms)? @ -uncomplicated Side effects of treatment? @ -No Exacerbation, Progression, or Severe Exacerbation? @ -No Poses a threat to life or bodily function? How? (Chest pain, USA, MS, pneumonia, PE, COPD, DKA, ARF, appy, cholecystitis, CVA, Diverticulitis, Homicidal, Suicidal, threat to staff... and all critical care pts) @ -No Disposition Clinical Impression: Injury of left zee, Ecchymosis, Cellulitis Disposition: HOME SELF-CARE Condition: Good Instructions (If sedation given, give patient instructions): Cellulitis (ED) Additional Instructions: Complete full course of antibiotics as prescribed. Return to the emergency department for any new or worsening symptoms. Prescriptions: Cephalexin [Keflex] 500 mg PO Q6HR #40 cap Is patient prescribed a controlled substance at d/c from ED?: No Referrals: None,Stated [Primary Care Provider] - 1-2 days Time of Disposition: 14:36
--- NOTE | 2023-11-01 14:27 | US ---
EXAMINATION TYPE: US venous doppler duplex LE DATE OF EXAM: 11/01/2023 2:21 PM COMPARISON: US 2014 CLINICAL INDICATION: Female, 63 years old with history of pain, erythema; Pain, erythema left leg aft er injury. No hx of DVT. SIDE PERFORMED: Left TECHNIQUE: The lower extremity deep venous system is examined utilizing real time linear array sonog odalys with graded compression, doppler sonography and color-flow sonography. VESSELS IMAGED: Common Femoral Vein Deep Femoral Vein Greater Saphenous Vein * Femoral Vein Popliteal Vein Small Saphenous Vein * Proximal Calf Veins (* superficial vessels) Left Leg: No evidence of DVT. Complex fluid collection seen left anterior zee at patient's area of tenderness measurin.0 x 3 .5 x 1.3 cm. IMPRESSION:
[2023-11-01] MEDS: cefTRIAXone 1,000 MG VIAL (IM USE) IM STA (14:36)
[2023-11-01 14:44] VITALS: BP 138/81; PULSE 51; TEMP 98.2
== END 2023-11-01 14:45 | disposition home or self-care (01) ==
LOC: EC 12:47
DX: S50.912A Unspecified superficial injury of left forearm, initial encounter (principal); F17.200 Nicotine dependence, unspecified, uncomplicated; Z88.2 Allergy status to sulfonamides; Z88.8 Allergy status to other drugs, medicaments and biological substances; X58.XXXA Exposure to other specified factors, initial encounter
CPT/HCPCS: 93971; 99283; 96372; J0696

== ENCOUNTER → 2024-02-22 | Outpatient (CLI) | payer MEDICARE ==
[2024-02-22 15:57] LABS: Basophils # (A) 0.05 X 10*3/uL (0.00-0.10); Basophils % (A) 0.7 %; Eosinophils # (A) 0.45 X 10*3/uL (0.04-0.35); Eosinophils % (A) 6.6 %; HCT 44.1 % (37.2-46.3); HGB 14.5 g/dL (12.0-15.0); Lymphocytes % (A) 32.2 %; MCH 33.5 pg (27.0-32.0); MCHC 32.9 g/dL (32.0-37.0); MCV 101.8 FL (80.0-97.0); Mean Platelet Volume 9.8 FL (9.5-12.2); Monocytes # (A) 0.63 X 10*3/uL (0.20-1.00); Monocytes % (A) 9.2 %; NRBC Per 100 WBC 0 X 10*3/uL (0.00-0.01); Neutrophils # (A) 3.49 X 10*3/uL (1.80-7.70); Neutrophils % (A) 51.2 %; Platelet Count 229 X 10*3/uL (140-440); RBC 4.33 X 10*6/uL (4.10-5.20); RDW 14.1 % (11.5-14.5); WBC 6.83 X 10*3/uL (4.50-10.00)
[2024-02-22 15:59] LABS: ALT 15 U/L (8-44); AST 17 U/L (13-35); Alkaline Phosphatase 93 U/L (41-126); Blood Urea Nitrogen 13.1 mg/dL (9.0-27.0); Calcium 10.4 mg/dL (8.7-10.3); Carbon Dioxide 26.6 mmol/L (21.6-31.8); Chloride 107 mmol/L (96-109); Chol/HDL Ratio 3.88 Ratio; Glucose 95 mg/dL (70-110); LDL Cholesterol,Calculated 125.2 mg/dL (0.0-131.0); Potassium 4.6 mmol/L (3.5-5.5); Sodium 141 mmol/L (135-145); VLDL Calculation 19.48 mg/dL (5.00-40.00)
--- NOTE | 2024-02-27 08:37 | MM ---
Reason for Exam: Screening (asymptomatic). Last mammogram was performed 2 year(s) and 0 month(s) ago. Patient History: Menarche at age 14. First Full-Term at age 25. Postmenopausal. Patient used Hormonal Contraceptives for 4 years. Sister had breast cancer, age 66. Risk Values: Stephy 5 year model risk: 2.8%. NCI Lifetime model risk: 11.7%. Prior Study Comparison: 03/10/2021 Left Diagnostic Mammogram, [facility]. 08/09/2021 Bilateral Diagnostic Mammogram, [facility]. 03/04/2022 Bilateral MG 3D screening mammo w/cad, [facility]. Tissue Density: There are scattered areas of fibroglandular density. Findings: Analyzed By CAD. Right breast: There is no suspicious group of microcalcifications or new suspicious mass. Left breast: There is no suspicious group of microcalcifications or new suspicious mass. Overall Assessment: Negative, BI-RAD 1 Management: Screening Mammogram of both breasts in [address] [facility] will attempt to contact patient to return for supplemental views and ultrasound if indicated. Patient should continue monthly self-breast exams. A clinical breast exam by your physician is recommended on an annual basis. This exam should not preclude additional follow-up of suspicious palpable abnormalities. Note on Stephy scores and lifetime risk: 1. A Stephy score greater than 3% is considered moderate risk. If this is the case, consider specialist referral to assess eligibility for a risk reducing agent. 2. If overall lifetime risk for the development of breast cancer is 20% or higher, the patient may qualify for future screening with alternating mammogram and breast MRI. [facility], , 02/27/2024 8:34 AM. Electronically signed and approved by: Mahin Mcwilliams DO
== END | disposition home or self-care (01) ==
LOC: RADMAMWWP 09:15
PROVIDERS: ATTEND Student in an Organized Health Care Education/Training Program
DX: Z12.31 Encounter for screening mammogram for malignant neoplasm of breast (principal); Z00.00 Encounter for general adult medical examination without abnormal findings; R92.323 Mammographic fibroglandular density, bilateral breasts; Z78.0 Asymptomatic menopausal state; Z80.3 Family history of malignant neoplasm of breast
CPT/HCPCS: 77067; 80053; 80061; 85025